=== PATIENT | male | born 1960 | race Two or more races ===

== ENCOUNTER 2021-10-30 11:56 | Inpatient (IN) | payer OTHER ==
[2021-10-30 12:58] LABS: BASO % 0.5 % (0-2.0); EOS % 2.1 % (0-4.5); HEMATOCRIT 38.8 % (35.4-49); HEMOGLOBIN 13.4 GM/dL (11.7-16.9); LYMPH % 21.3 % (8-40); MCH 29.1 pg (25.7-33.7); MCHC 34.4 g/dl (32.0-35.9); MEAN CELL VOLUME 84.6 fl (80-96); MEAN PLT VOLUME 8.2 fl (7.5-11.1); MONO % 10.3 % (3.8-10.2); NEUT % 65.8 % (42.8-82.8); PLATELET COUNT 198 10^3/uL (134-434); RBC 4.58 M/mm3 (4.00-5.60); RDW 14.1 % (11.9-15.9); WHITE BLOOD COUNT 8.6 K/mm3 (4.0-10.0)
[2021-10-30 13:06] LABS: INR 1.08 (0.83-1.09); PROTHROMBIN TIME (PATIENT) 12.6 SEC (9.7-13.0)
[2021-10-30 13:08] LABS: ACTIVATED PTT 31.7 SECONDS (25.2-36.5)
[2021-10-30 13:17] LABS: CHLORIDE 106 mmol/L (98-107); SODIUM 141 mmol/L (136-145)
[2021-10-30 13:20] LABS: ALBUMIN 3.2 g/dl (3.4-5.0); ANION GAP 6 MMOL/L (8-16); CALCIUM 9.1 mg/dL (8.5-10.1); CO2 29 mmol/L (21-32)
[2021-10-30 13:21] LABS: BLOOD UREA NITROGEN 27.2 mg/dL (7-18); GLUCOSE,RANDOM 80 mg/dL (74-106)
[2021-10-30 13:23] LABS: CREATININE 1.6 mg/dL (0.55-1.3); SGOT/AST 16 U/L (15-37); SGPT/ALT 20 U/L (13-61); TRIGLYCERIDES 143 mg/dL (0-150)
[2021-10-30 13:24] LABS: CHOLESTEROL 152 mg/dL (50-200); LDL CHOLESTEROL (ONLY SJRH) 87 mg/dL (5-100)
[2021-10-30 13:25] LABS: BILIRUBIN,TOTAL 0.4 mg/dL (0.2-1); TOT PROT 6.9 g/dl (6.4-8.2)
[2021-10-30 13:26] LABS: ALK PHOS 70 U/L (45-117); HDL CHOLESTEROL 38 mg/dL (40-60)
[2021-10-30 15:18] LABS: URINE APPEARANCE CLEAR; URINE BILIRUBIN NEGATIVE (NEGATIVE); URINE COLOR YELLOW; URINE GLUCOSE (UA) NEGATIVE (NEGATIVE); URINE KETONE NEGATIVE (NEGATIVE); URINE LEUK ESTERASE NEGATIVE (NEGATIVE); URINE NITRITE NEGATIVE (NEGATIVE); URINE PROTEIN NEGATIVE (NEGATIVE); URINE UROBILINOGEN 0.2 mg/dL (0.2-1.0)
[2021-10-30] MEDS ORDERED: ASPIRIN 81 MG CHEWABLE TABLETS PO ONE (16:13)
[2021-10-30] MEDS ORDERED: ATORVASTATIN CA 80 MG TABLET (FP) PO ONE (16:14)
[2021-10-30] MEDS ORDERED: ATORVASTATIN CA 80 MG TABLET (FP) ONE (16:38)
[2021-10-30] MEDS ORDERED: ASPIRIN 81 MG CHEWABLE TABLETS ONE (16:38)
[2021-10-30] MEDS ORDERED: HEPARIN NA (PORCINE) 5,000 UNITS/ML 1ML VIAL ONE (22:20)
[2021-10-30] MEDS ORDERED: METOPROLOL TARTRATE 25 MG TABLET (FP) ONE (22:20)
[2021-10-30] MEDS ORDERED: ATORVASTATIN CA 40 MG TABLET (FP) ONE (22:20)
[2021-10-30] MEDS: METOPROLOL TARTRATE 25 MG TABLET (FP) PO SCH (22:34)
[2021-10-30] MEDS: ATORVASTATIN CA 40 MG TABLET (FP) PO SCH (22:34)
[2021-10-30] MEDS: HEPARIN NA (PORCINE) 5,000 UNITS/ML 1ML VIAL SQ SCH (22:34)
[2021-10-31] MEDS ORDERED: HEPARIN NA (PORCINE) 5,000 UNITS/ML 1ML VIAL ONE ×2 (07:55→21:19)
[2021-10-31] MEDS ORDERED: PANTOPRAZOLE 20 MG TABLET PO ONE (07:55)
[2021-10-31] MEDS ORDERED: ASPIRIN COATED 81 MG TABLET.EC ONE (07:55)
[2021-10-31] MEDS ORDERED: METOPROLOL TARTRATE 25 MG TABLET (FP) ONE ×3 (07:55→21:18)
[2021-10-31] MEDS: HEPARIN NA (PORCINE) 5,000 UNITS/ML 1ML VIAL SQ SCH ×2 (09:00→21:20)
[2021-10-31] MEDS: PANTOPRAZOLE 20 MG TABLET PO SCH (09:05)
[2021-10-31] MEDS: ASPIRIN COATED 81 MG TABLET.EC PO SCH (09:05)
[2021-10-31] MEDS ORDERED: SODIUM CHLORIDE 1,000 ML IV SCH (12:45)
[2021-10-31 13:58] LABS: CHLORIDE 104 mmol/L (98-107); SODIUM 142 mmol/L (136-145)
[2021-10-31 14:01] LABS: ALBUMIN 3.4 g/dl (3.4-5.0); ANION GAP 8 MMOL/L (8-16); CALCIUM 9.5 mg/dL (8.5-10.1); CO2 30 mmol/L (21-32)
[2021-10-31 14:02] LABS: BLOOD UREA NITROGEN 21.3 mg/dL (7-18); GLUCOSE,RANDOM 98 mg/dL (74-106); MAGNESIUM 2.2 mg/dL (1.8-2.4)
[2021-10-31 14:04] LABS: CHOLESTEROL 160 mg/dL (50-200); CREATININE 1.5 mg/dL (0.55-1.3); SGOT/AST 14 U/L (15-37); SGPT/ALT 18 U/L (13-61)
[2021-10-31 14:06] LABS: BILIRUBIN,TOTAL 0.7 mg/dL (0.2-1); LDL CHOLESTEROL (ONLY SJRH) 94 mg/dL (5-100); TOT PROT 7.4 g/dl (6.4-8.2); TRIGLYCERIDES 130 mg/dL (0-150)
[2021-10-31 14:07] LABS: ALK PHOS 79 U/L (45-117); HDL CHOLESTEROL 39 mg/dL (40-60)
[2021-10-31] MEDS ORDERED: amLODIPine BESYLATE 5 MG TABLET (FP) ONE (16:57)
[2021-10-31 17:12] LABS: PHOSPHOROUS 2.7 mg/dL (2.5-4.9)
[2021-10-31] MEDS: amLODIPine BESYLATE 5 MG TABLET (FP) PO SCH (18:44)
[2021-10-31] MEDS: METOPROLOL TARTRATE 25 MG TABLET (FP) PO SCH ×2 (18:44→20:20)
[2021-10-31] MEDS ORDERED: ATORVASTATIN CA 40 MG TABLET (FP) ONE (21:19)
[2021-10-31] MEDS: ATORVASTATIN CA 40 MG TABLET (FP) PO SCH (21:20)
[2021-11-01 07:29] LABS: BASO % 0.7 % (0-2.0); EOS % 2.8 % (0-4.5); HEMATOCRIT 42.2 % (35.4-49); HEMOGLOBIN 14.6 GM/dL (11.7-16.9); LYMPH % 22.7 % (8-40); MCH 29.4 pg (25.7-33.7); MCHC 34.6 g/dl (32.0-35.9); MEAN PLT VOLUME 8.6 fl (7.5-11.1); MONO % 10.4 % (3.8-10.2); NEUT % 63.4 % (42.8-82.8); PLATELET COUNT 206 10^3/uL (134-434); RBC 4.96 M/mm3 (4.00-5.60); RDW 14.3 % (11.9-15.9); WHITE BLOOD COUNT 8.3 K/mm3 (4.0-10.0)
[2021-11-01 07:51] LABS: CALCIUM 9.1 mg/dL (8.5-10.1)
[2021-11-01 07:52] LABS: ALBUMIN 3.4 g/dl (3.4-5.0)
[2021-11-01 07:54] LABS: URIC ACID 5.8 mg/dL (2.6-7.2)
[2021-11-01 07:55] LABS: CREATININE 1.3 mg/dL (0.55-1.3)
[2021-11-01 07:56] LABS: BILIRUBIN,TOTAL 0.8 mg/dL (0.2-1); TOT PROT 7.2 g/dl (6.4-8.2)
[2021-11-01] MEDS: HEPARIN NA (PORCINE) 5,000 UNITS/ML 1ML VIAL SQ SCH ×2 (10:26→21:10)
[2021-11-01] MEDS: ASPIRIN COATED 81 MG TABLET.EC PO SCH (10:26)
[2021-11-01] MEDS: METOPROLOL TARTRATE 25 MG TABLET (FP) PO SCH ×2 (10:26→21:10)
[2021-11-01] MEDS: PANTOPRAZOLE 20 MG TABLET PO SCH (10:26)
[2021-11-01] MEDS: amLODIPine BESYLATE 5 MG TABLET (FP) PO SCH (10:26)
[2021-11-01] MEDS: KCL 10 MEQ IVPB 10 MEQ/100 ML INFUS.BAG IVPB SCH ×3 (10:27→14:35)
[2021-11-01] MEDS ORDERED: POTASSIUM CHLORIDE ORAL LIQUID 20 MEQ/15 ML PO ONE (18:30)
[2021-11-01] MEDS: ATORVASTATIN CA 40 MG TABLET (FP) PO SCH (21:10)
[2021-11-02 09:18] LABS: BASO % 0.7 % (0-2.0); EOS % 2.4 % (0-4.5); HEMATOCRIT 41.6 % (35.4-49); HEMOGLOBIN 14.6 GM/dL (11.7-16.9); LYMPH % 18.6 % (8-40); MCH 29.7 pg (25.7-33.7); MCHC 35.1 g/dl (32.0-35.9); MEAN CELL VOLUME 84.5 fl (80-96); MEAN PLT VOLUME 8.5 fl (7.5-11.1); MONO % 8.8 % (3.8-10.2); NEUT % 69.5 % (42.8-82.8); PLATELET COUNT 197 10^3/uL (134-434); RBC 4.92 M/mm3 (4.00-5.60); RDW 13.9 % (11.9-15.9); WHITE BLOOD COUNT 8.7 K/mm3 (4.0-10.0)
[2021-11-02 09:48] LABS: CALCIUM 9.3 mg/dL (8.5-10.1)
[2021-11-02 09:49] LABS: ALBUMIN 3.4 g/dl (3.4-5.0); BLOOD UREA NITROGEN 20.8 mg/dL (7-18)
[2021-11-02 09:52] LABS: CREATININE 1.4 mg/dL (0.55-1.3)
[2021-11-02 09:54] LABS: BILIRUBIN,TOTAL 0.9 mg/dL (0.2-1); TOT PROT 7.2 g/dl (6.4-8.2)
[2021-11-02] MEDS: PANTOPRAZOLE 20 MG TABLET PO SCH (10:12)
[2021-11-02] MEDS: HEPARIN NA (PORCINE) 5,000 UNITS/ML 1ML VIAL SQ SCH ×2 (10:12→21:35)
[2021-11-02] MEDS: amLODIPine BESYLATE 5 MG TABLET (FP) PO SCH (10:12)
[2021-11-02] MEDS: ASPIRIN COATED 81 MG TABLET.EC PO SCH (10:12)
[2021-11-02] MEDS: METOPROLOL TARTRATE 25 MG TABLET (FP) PO SCH ×2 (10:13→21:35)
[2021-11-02] MEDS: ATORVASTATIN CA 40 MG TABLET (FP) PO SCH (21:35)
[2021-11-03] MEDS: PANTOPRAZOLE 20 MG TABLET PO SCH (10:18)
[2021-11-03] MEDS: ASPIRIN COATED 81 MG TABLET.EC PO SCH (10:18)
[2021-11-03] MEDS: METOPROLOL TARTRATE 25 MG TABLET (FP) PO SCH ×2 (10:18→21:17)
[2021-11-03] MEDS: amLODIPine BESYLATE 5 MG TABLET (FP) PO SCH (10:18)
[2021-11-03] MEDS: HEPARIN NA (PORCINE) 5,000 UNITS/ML 1ML VIAL SQ SCH ×2 (10:18→21:17)
[2021-11-03] MEDS: DOXAZOSIN MESYLATE 4 MG TABLET PO SCH (14:14)
[2021-11-03] MEDS: ATORVASTATIN CA 40 MG TABLET (FP) PO SCH (21:17)
[2021-11-04 08:31] LABS: ALBUMIN 3.2 g/dl (3.4-5.0); CALCIUM 9.2 mg/dL (8.5-10.1)
[2021-11-04 08:32] LABS: BLOOD UREA NITROGEN 30.6 mg/dL (7-18)
[2021-11-04 08:35] LABS: CREATININE 1.5 mg/dL (0.55-1.3)
[2021-11-04 08:36] LABS: TOT PROT 6.8 g/dl (6.4-8.2)
[2021-11-04 08:37] LABS: BILIRUBIN,TOTAL 0.6 mg/dL (0.2-1)
[2021-11-04] MEDS: DOXAZOSIN MESYLATE 4 MG TABLET PO SCH (09:35)
[2021-11-04] MEDS: PANTOPRAZOLE 20 MG TABLET PO SCH (09:35)
[2021-11-04] MEDS: HEPARIN NA (PORCINE) 5,000 UNITS/ML 1ML VIAL SQ SCH ×2 (09:35→22:05)
[2021-11-04] MEDS: METOPROLOL TARTRATE 25 MG TABLET (FP) PO SCH ×2 (09:35→22:06)
[2021-11-04] MEDS: ASPIRIN COATED 81 MG TABLET.EC PO SCH (09:35)
[2021-11-04] MEDS: amLODIPine BESYLATE 5 MG TABLET (FP) PO SCH (09:35)
[2021-11-04] MEDS: ATORVASTATIN CA 40 MG TABLET (FP) PO SCH (22:06)
[2021-11-05 07:26] LABS: BASO % 0.6 % (0-2.0); EOS % 2.9 % (0-4.5); HEMATOCRIT 39.4 % (35.4-49); HEMOGLOBIN 13.7 GM/dL (11.7-16.9); LYMPH % 25.7 % (8-40); MCH 29.3 pg (25.7-33.7); MCHC 34.7 g/dl (32.0-35.9); MEAN CELL VOLUME 84.4 fl (80-96); MEAN PLT VOLUME 8.9 fl (7.5-11.1); MONO % 9.8 % (3.8-10.2); PLATELET COUNT 172 10^3/uL (134-434); RBC 4.67 M/mm3 (4.00-5.60); RDW 13.9 % (11.9-15.9); WHITE BLOOD COUNT 7.5 K/mm3 (4.0-10.0)
[2021-11-05 07:47] LABS: CALCIUM 9.1 mg/dL (8.5-10.1)
[2021-11-05 07:48] LABS: ALBUMIN 3.1 g/dl (3.4-5.0); BLOOD UREA NITROGEN 25.9 mg/dL (7-18)
[2021-11-05 07:51] LABS: CREATININE 1.4 mg/dL (0.55-1.3)
[2021-11-05 07:52] LABS: BILIRUBIN,TOTAL 0.7 mg/dL (0.2-1); TOT PROT 6.6 g/dl (6.4-8.2)
[2021-11-05] MEDS: HEPARIN NA (PORCINE) 5,000 UNITS/ML 1ML VIAL SQ SCH ×2 (09:58→21:46)
[2021-11-05] MEDS: ASPIRIN COATED 81 MG TABLET.EC PO SCH (09:58)
[2021-11-05] MEDS: DOXAZOSIN MESYLATE 4 MG TABLET PO SCH (09:58)
[2021-11-05] MEDS: PANTOPRAZOLE 20 MG TABLET PO SCH (09:58)
[2021-11-05] MEDS: amLODIPine BESYLATE 5 MG TABLET (FP) PO SCH (09:58)
[2021-11-05] MEDS: METOPROLOL TARTRATE 25 MG TABLET (FP) PO SCH ×2 (09:58→21:47)
[2021-11-05] MEDS: ATORVASTATIN CA 40 MG TABLET (FP) PO SCH (21:47)
[2021-11-06] MEDS: PANTOPRAZOLE 20 MG TABLET PO SCH (09:53)
[2021-11-06] MEDS: amLODIPine BESYLATE 5 MG TABLET (FP) PO SCH (09:53)
[2021-11-06] MEDS: HEPARIN NA (PORCINE) 5,000 UNITS/ML 1ML VIAL SQ SCH ×2 (09:53→21:24)
[2021-11-06] MEDS: METOPROLOL TARTRATE 25 MG TABLET (FP) PO SCH ×2 (09:53→21:24)
[2021-11-06] MEDS: DOXAZOSIN MESYLATE 4 MG TABLET PO SCH (09:53)
[2021-11-06] MEDS: ASPIRIN COATED 81 MG TABLET.EC PO SCH (09:53)
[2021-11-06 13:16] VITALS: BMI 22.7
[2021-11-06] MEDS: ATORVASTATIN CA 40 MG TABLET (FP) PO SCH (21:24)
[2021-11-07] MEDS: METOPROLOL TARTRATE 25 MG TABLET (FP) PO SCH (10:06)
[2021-11-07] MEDS: amLODIPine BESYLATE 5 MG TABLET (FP) PO SCH (10:06)
[2021-11-07] MEDS: PANTOPRAZOLE 20 MG TABLET PO SCH (10:06)
[2021-11-07] MEDS: ASPIRIN COATED 81 MG TABLET.EC PO SCH (10:07)
[2021-11-07] MEDS: DOXAZOSIN MESYLATE 4 MG TABLET PO SCH (10:07)
[2021-11-07 13:57] VITALS: BP 152/79; PULSE 66; TEMP 97.7
== END 2021-11-07 14:25 | DRG 47 ==
LOC: JER 11:56 → JERBED 15:13 → INTOOBSV 15:13 → UNDOADMOB 15:13 → JERBED 16:54 → J4W 11-01 01:31 → OBSVTOIN 11-04 14:21
PROVIDERS: ADMIT Family Medicine; ATTEND Family Medicine
DX: G45.9 Transient cerebral ischemic attack, unspecified (principal); N17.9 Acute kidney failure, unspecified; I69.354 Hemiplegia and hemiparesis following cerebral infarction affecting left non-dominant side; F03.90 Unspecified dementia, unspecified severity, without behavioral disturbance, psychotic disturbance, mood disturbance, and anxiety; E78.5 Hyperlipidemia, unspecified; I10 Essential (primary) hypertension; N18.9 Chronic kidney disease, unspecified
CPT/HCPCS: 36415; 70450-TC; 70496-TC; 70498-TC; 72125-TC; 74176-TC; 76775-TC; 76856-TC; 80053; 80061; 81003; 82550; 82553; 83036; 83735; 84100; 84443; 84484; 84550; 85025; 85610; 85730; 86850; 86900; 86901; 93005; 93010; 93306-TC; 93880-TC; 97116-GP; 97162-GP; 99285-25; C9803-CS; G0378; J1644; Q9967; U0003; U0005